=== PATIENT | male | born 1960 | race Caucasian/White ===

== ENCOUNTER → 2017-04-17 | Outpatient (CLI) | payer OTHER ==
[~2017-04-17] MED LIST: BENICAR20 MG PO; LO-DOSE ASPIRIN81 M2 PO; MEN 50 PLUS MU1 EACH PO; PRILOSEC20 MG PO; SAW PALMETTO C1 EACH PO
== END | disposition home or self-care (01) ==
LOC: CDC
DX: Z01.810 Encounter for preprocedural cardiovascular examination (principal); K40.20 Bilateral inguinal hernia, without obstruction or gangrene, not specified as recurrent
CPT/HCPCS: 93000

== ENCOUNTER 2017-04-25 11:02 | Day surgery (SDC) | payer OTHER ==
[~2017-04-25] VITALS: Ht 172.7 cm; Wt 80.7 kg
[2017-04-25 11:57] VITALS: BP 121/73
[2017-04-25] MEDS ORDERED: COLACE100 MG PO (16:21)
[2017-04-25] MEDS ORDERED: PERCOCET 5/31 TABLET PO (16:21)
[2017-04-25 17:02] VITALS: BP 136/85
[2017-04-25 18:05] VITALS: BP 132/74
[2017-04-25 19:02] VITALS: BP 138/80
== END 2017-04-25 19:07 | disposition home or self-care (01) ==
LOC: SDC 11:02
DX: K40.20 Bilateral inguinal hernia, without obstruction or gangrene, not specified as recurrent (principal); K42.9 Umbilical hernia without obstruction or gangrene; I10 Essential (primary) hypertension; K21.9 Gastro-esophageal reflux disease without esophagitis; E11.9 Type 2 diabetes mellitus without complications; Z79.82 Long term (current) use of aspirin; Z87.891 Personal history of nicotine dependence
CPT/HCPCS: C1727; C1781; J0690; J1100; J1170; J2175; J2250; J2405; J2710; J3010